=== PATIENT | female | born 1945 | race Caucasian/White ===

== ENCOUNTER 2017-11-25 09:46 | Emergency (ER) | payer OTHER ==
[~2017-11-25] VITALS: Ht 167.6 cm; Wt 57.6 kg
[2017-11-25 09:47] VITALS: BP 152/90
== END 2017-11-25 11:45 | disposition home or self-care (01) ==
LOC: ER 09:48
DX: B34.9 Viral infection, unspecified (principal); J34.89 Other specified disorders of nose and nasal sinuses; Z88.0 Allergy status to penicillin
CPT/HCPCS: 86403-TC; 87070-TC; 87400; A4606; Z7610

== ENCOUNTER 2017-11-28 11:49 | Emergency (ER) | payer OTHER ==
[~2017-11-28] VITALS: Ht 167.6 cm; Wt 57.6 kg
[2017-11-28 11:49] VITALS: BP 136/90
[2017-11-28] MEDS ORDERED: HYDROCODONE BIT/HOMATROPINE 5 ML UDC PO ONE (12:30)
[2017-11-28] MEDS ORDERED: HYDROCODONE BIT/HOMATROPINE 5 ML UDC ONE (12:35)
== END 2017-11-28 14:18 | disposition home or self-care (01) ==
LOC: ER 11:53
DX: J06.9 Acute upper respiratory infection, unspecified (principal); Z88.1 Allergy status to other antibiotic agents; Z88.8 Allergy status to other drugs, medicaments and biological substances
CPT/HCPCS: 71046; A4606; Z7610

== ENCOUNTER 2017-12-02 11:07 | Emergency (ER) | payer OTHER ==
[~2017-12-02] VITALS: Ht 170.2 cm; Wt 56.2 kg
[2017-12-02 11:11] VITALS: BP 145/87
== END 2017-12-02 12:12 | disposition home or self-care (01) ==
LOC: ER 11:09
DX: J32.9 Chronic sinusitis, unspecified (principal); Z88.1 Allergy status to other antibiotic agents; Z88.8 Allergy status to other drugs, medicaments and biological substances
CPT/HCPCS: 99283; A4606; Z7610